=== PATIENT | male | born 1970 | race Caucasian/White ===

== ENCOUNTER → 2020-02-03 11:22 | Outpatient (BNVA) | payer SELFPAY | PROVIDERS: Visit Provider Family Medicine Adult Medicine | DX: I10 Essential (primary) hypertension (principal); I50.9 Heart failure, unspecified; E66.9 Obesity, unspecified; I48.91 Unspecified atrial fibrillation | CPT/HCPCS: 80053; 80061; 83721; 84443; 85025 ==

== ENCOUNTER 2020-02-24 15:08 | Outpatient (CLI) | payer SELFPAY ==
--- NOTE | 2020-02-24 15:45 | USCV_ITS ---
Kai Dove Age: 50 Gender: M : 1970 Exam Date: 02/24/2020 15:09 Ordering Phys: Romeo Zapata MD Technologist: Yoel Harry [place] [facility] [place]: AFIB BP: 160 / 94 HR: 83 Rhythm: Sinus Technical Quality: Fair MEASUREMENTS (Male / Female) Normal Values 2D ECHO LV Diastolic Diameter PLAX 5.2 cm 4.2 - 5.9 / 3.9 - 5.3 cm LV Systolic Diameter PLAX 2.8 cm IVS Diastolic Thickness 1.2 cm 0.6 - 1.0 / 0.6 - 0.9 cm IVS Systolic Thickness 1.4 cm LVPW Diastolic Thickness 1.6 cm 0.6 - 1.0 / 0.6 - 0.9 cm LVPW Systolic Thickness 1.6 cm LVOT Diameter 2.3 cm LV Ejection Fraction 2D Teich 73.4 % LV Ejection Fraction MOD 2C 55.8 % LV Ejection Fraction 2C AL 56.7 % LA Diameter 4.3 cm LA Width 4.8 cm LA Height 6.4 cm RA Width 4.3 cm RA Height 5.8 cm M-MODE LV Diastolic Diameter MM 5.7 cm 4.2 - 5.9 / 3.9 - 5.3 cm LV Systolic Diameter MM 4.1 cm LV Ejection Fraction MM Teich 53.5 % IVS Diastolic Thickness MM 1.5 cm 0.6 - 1.0 / 0.6 - 0.9 cm IVS Systolic Thickness MM 2.2 cm LVPW Diastolic Thickness MM 1.7 cm 0.6 - 1.0 / 0.6 - 0.9 cm LVPW Systolic Thickness MM 2.2 cm RV Diastolic Diameter MM 2.3 cm Aortic Annulus Diameter 4.4 cm LA Ao Ratio MM 0.9 MV E Point Septal Separation 1.6 cm DOPPLER MV Area PHT 5.0 cm squared Mitral E to A Ratio 4.2 MV E' Velocity 54.5 cm/s Mitral E to MV E' Ratio 8.7 Mitral E to LV E' Lateral Ratio 7.3 Mitral E to LV E' Septal Ratio 10.8 TR Peak Velocity 174.0 cm/s TR Peak Gradient 12.1 mmHg TV Peak E Velocity 84.0 cm/s Right Atrial Pressure 3.0 mmHg Pulmonary Artery Systolic Pressu 15.1 mmHg FINDINGS Left Ventricle Normal left ventricular size and systolic function, EF 59 %. Mild hypokinesia of the basal inferior wall Right Ventricle Normal right ventricular size and systolic function. Right Atrium Mildly increased right atrial size. Left Atrium Mildly increased left atrial size. Mitral Valve No gross abnormalities noted Aortic Valve No gross abnormalities noted Tricuspid Valve No gross abnormalities noted Pulmonic Valve Pulmonic valve not well visualized. Pericardium No pericardial effusion. Aorta Normal aortic annulus size. CONCLUSIONS Normal left ventricular size and systolic function, EF 59 %. Wall motion of normality as mentioned above Mild biatrial enlargement There is no pericardial effusion. There are no intracardiac masses. No previous study is available for comparison. Dr Randi Thompson MD FACC (Electronically Signed) Final Date: 24 February 2020 19:55 S
== END 2020-02-24 15:09 | disposition home or self-care (01) ==
LOC: US 15:08
PROVIDERS: PCP Family Medicine Adult Medicine; Visit Provider Family Medicine Adult Medicine
DX: I50.9 Heart failure, unspecified (principal); I48.91 Unspecified atrial fibrillation; I51.7 Cardiomegaly
CPT/HCPCS: 93306

== ENCOUNTER → 2023-01-17 14:42 | Outpatient (BNVA) | payer MEDICAID, SELFPAY | PROVIDERS: PCP Family Medicine Adult Medicine; Visit Provider Family Medicine Adult Medicine | DX: I10 Essential (primary) hypertension (principal); I69.398 Other sequelae of cerebral infarction; R42 Dizziness and giddiness; I67.9 Cerebrovascular disease, unspecified; Z00.00 Encounter for general adult medical examination without abnormal findings; I63.9 Cerebral infarction, unspecified; I48.91 Unspecified atrial fibrillation | CPT/HCPCS: 80053; 84443; 85025; G0103 ==

== ENCOUNTER → 2023-02-21 14:30 | Outpatient (BNVA) | payer MEDICAID, SELFPAY | PROVIDERS: PCP Family Medicine Adult Medicine; Visit Provider Family Medicine Adult Medicine | DX: I69.398 Other sequelae of cerebral infarction (principal); R42 Dizziness and giddiness; R79.89 Other specified abnormal findings of blood chemistry | CPT/HCPCS: 84439; 84443 ==

== ENCOUNTER → 2025-03-26 15:17 | Outpatient (BNVA) | payer MEDICAID, SELFPAY | PROVIDERS: PCP Family Medicine Adult Medicine; Visit Provider Orthopaedic Surgery | DX: M48.062 Spinal stenosis, lumbar region with neurogenic claudication (principal) | CPT/HCPCS: 72110 ==